=== PATIENT | male | born 1955 | race Caucasian/White ===

== ENCOUNTER → 2021-06-09 | Day surgery (SDC) | payer MEDICARE, MEDICAID ==
[2021-06-03 11:21] LABS: BASOPHILS % (AUTO) 0.9 % (0-1); CLARITY,URINE CLEAR (Clear); COLOR,URINE YELLOW (Yellow); EOSINOPHILS # (AUTO) 0.1 X10'3 (0-0.9); EOSINOPHILS % (AUTO) 1.7 % (0-6); GLUCOSE, URINE NEGATIVE (Neg); KETONES,URINE NEGATIVE (Neg); LEUKOCYTE ESTERASE ,URINE NEGATIVE (Neg); LYMPHOCYTES # (AUTO) 0.6 X10'3 (1.1-4.8); LYMPHOCYTES % (AUTO) 19.4 % (21-51); MEAN CORPUSCULAR HEMOGLOBIN 29.2 PG (27.0-31.0); MEAN CORPUSCULAR HGB CONC 33.2 g/dL (33.0-36.5); MONOCYTES # (AUTO) 0.4 X10'3 (0-0.9); MONOCYTES % (AUTO) 12.5 % (2-12); NEUTROPHILS # (AUTO) 1.9 X10'3 (1.8-7.7); NEUTROPHILS % (AUTO) 65.5 % (42-75); NITRITES, URINE NEGATIVE (Neg); OCCULT BLOOD,URINE NEGATIVE (Neg); PRE OP HEMOGLOBIN 13.3 g/dL (14.0-17.9); PROTEIN,URINE NEGATIVE (Neg); RED BLOOD COUNT 4.55 X10'6 (4.70-6.10); RED CELL DISTRIBUTION WIDTH 14.3 % (11.5-14.5); UROBILINOGEN,URINE 0.2 E.U/dL (0.2-1.0)
[2021-06-03 11:30] LABS: UA COLLECTION TYPE CLN CATCH MIDSTREAM
[2021-06-03 11:36] LABS: PRE OP INR 1.1 INR; PRE OP PROTIME 11.4 SECONDS (9.0-12.0)
[2021-06-03 11:40] LABS: ALBUMIN 3.7 G/DL (3.4-5.0); ALBUMIN/GLOBULIN RATIO 1.2 (1.1-1.5); ALKALINE PHOSPHATASE 70 IU/L (46-116); BLOOD UREA NITROGEN 18 MG/DL (7-18); CALCIUM 9.3 MG/DL (8.5-10.1); CHLORIDE 105 MMOL/L (99-107); PRE OP ALT 31 U/L (30-65); PRE OP ANION GAP 8 (8-16); PRE OP AST 32 U/L (10-37); PRE OP GLUCOSE 82 MG/DL (70-104); PRE OP POTASSIUM 3.9 MMOL/L (3.4-5.1); PRE OP SODIUM 141 MMOL/L (135-145); TOTAL PROTEIN 6.8 G/DL (6.4-8.2); eGFR 38 ML/MIN
[2021-06-03 11:49] LABS: PRE OP PLATELET COUNT 23 X10'3 (140-440)
[2021-06-03 12:01] LABS: LARGE PLATELETS FEW; PLATELET ESTIMATE DECREASED; TOTAL CELLS COUNTED 100
[~2021-06-09] VITALS: Ht 177.8 cm; Wt 75.2 kg
[2021-06-09] VITALS (13 sets, daily range): BP systolic 91–110; BP diastolic 54–71
[~2021-06-09] MED LIST: BUDE10.2 INH; BUPIVAcaine/PF 2.5 mg/ml (0.25%) 30ml vial ONE; FLUT16SP26 BOTHNARES; GABA300C PO; LIDOcaine 1% 30ml preserv. free vial ONE; LORA10CA PO; MAGN400C PO; MULT-1085 PO; OMEG1CAP2 PO; VITAMIN B-100; cefazolin/dext.iso 2gm/100ml IV ONE; famotidine 20mg tablet PO ONE; fentaNYL/PF 50MCG/1 ML 2ML syringe ONE; meperidine/PF 25mg/ml syringe IV PRN; midazolam 1 mg/ML 2ml injection ONE; morphine 2 MG/ML inj. syringe IV PRN; morphine 4 MG/ML inj SYRINge IV PRN; ondansetron/PF 4mg/2ml inj IV PRN; proCHLORperazine 10 MG/2 ml inj IV PRN; propofol inj 20 ML IV ONE; ringers solution, lacted 1,000 ML IV SCH; sevoflurane 250ml liquid IH ONE
--- NOTE | 2021-06-09 11:57 | NUR ---
POST TRANSFUSION OF 2 UNITS OF PLATELETS. 98.5, 108/65, 61, 16, 96% O2 ON RA. NO S/S OF REACTION. PT. TOLERATED WELL. PT. CONVERSING WITH . VSS. IV IN L. FA CDI. LR INFUSING AT 30ML/HR. EDUCATION GIVEN RE: REACTION. PT AND STATE UNDERSTANDING. Addendum: 06/09/21 at 1200 by Clover Porter RN Amended: Links added.
--- NOTE | 2021-06-09 13:58 | NUR ---
PT AWAKE ALERT VSS NO PAIN MEETS CRITERIA TO DC HOME,DC INSTR GIVEN NO ?'S OR CONCERNS MEETS CRITERIA TO GO HOME
--- NOTE | 2021-06-09 13:58 | NUR ---
PT MEETS CRITERIA TO DC HOME. Addendum: 06/09/21 at 1439 by Haydee Sanchez RN Amended: Links added.
== END | disposition home or self-care (01) ==
LOC: PAS 06:23
PROVIDERS: ATTEND Surgery
DX: R59.0 Localized enlarged lymph nodes (principal); C82.34 Follicular lymphoma grade IIIa, lymph nodes of axilla and upper limb; D69.6 Thrombocytopenia, unspecified; J44.9 Chronic obstructive pulmonary disease, unspecified; G47.30 Sleep apnea, unspecified; F41.9 Anxiety disorder, unspecified; F32.9 Major depressive disorder, single episode, unspecified; Z98.890 Other specified postprocedural states; Z87.891 Personal history of nicotine dependence; Z85.828 Personal history of other malignant neoplasm of skin; Z86.19 Personal history of other infectious and parasitic diseases; Z20.822 Contact with and (suspected) exposure to COVID-19; Z79.01 Long term (current) use of anticoagulants; Z79.899 Other long term (current) drug therapy
CPT/HCPCS: 36415; 36430; 38500; 80053; 81003; 82948; 85025; 85610; 85730; 86885; 86900; 86901; 93005; J2001; J2250; J2704; J3010; J3490; P9035; U0003; U0005; Z7506; Z7512; 85007; 88305; 88342; A4215; A4618; A6258; A7000; J7120